=== PATIENT | female | born 1960 | race Caucasian/White ===

== ENCOUNTER 2018-03-06 19:25 | Outpatient (REF) | payer OTHER, SELFPAY ==
[2018-03-06 19:36] LABS: HCT 43.4 % (36.0-46.0); HGB 14.7 g/dL (12.0-15.5); Mean Corp. HGB Concentration 33.9 g/dL (32.0-36.0); Mean Corpuscular Hemoglobin 31.1 pg (27.0-33.0); Mean Corpuscular Volume 91.9 fL (80-95); RBC 4.72 m/cumm (4.00-5.20); RBC Distribution Width 13.1 % (11.7-14.6); White Blood Cell Count 8.15 k/cumm (4.4-10.8)
[2018-03-06 19:37] LABS: Mean Platelet Volume 11.2 fL (8.0-11.0); Platelet Count 337 x1000/uL (130-400)
[2018-03-06 19:53] LABS: ALT 37 U/L (12-78); AST 28 U/L (15-37); Albumin 3.6 g/dL (3.4-5.0); Alkaline Phosphatase 71 U/L (46-116); Anion Gap 10.6 mmol/L (3-11); BUN 25 mg/dL (7-18); Bilirubin, Total 0.3 mg/dL (0.2-1.0); CO2 23.4 mmol/L (21.0-32.0); CREATININE 0.75 mg/dL (0.55-1.02); Calcium 8.8 mg/dL (8.5-10.1); Chloride 108 mmol/L (98-107); Glucose 99 mg/dL (70-100); Potassium 3.8 mmol/L (3.5-5.1); Sodium 142 mmol/L (136-145); TSH 3.75 uIU/mL (0.358-3.74); Total Protein 6.6 g/dL (6.4-8.2)
== END 2018-03-06 19:26 ==
LOC: NCHCN 19:25
PROVIDERS: PCP Internal Medicine; Visit Provider Physician Assistant Medical
DX: R19.7 Diarrhea, unspecified (principal)
CPT/HCPCS: 80053; 85027; 84443

== ENCOUNTER 2018-12-11 15:32 | Outpatient (REF) | payer OTHER, SELFPAY ==
--- NOTE | 2018-12-11 14:45 | PAPFT_PTH ---
PATIENT: Laney Merrill LOC: [facility] U#:[id number] AGE/SX: 58/F ROOM: RE12/11/[address]: Marc Duggan : 1960 BED: DIS: 12/11/2018 SPEC #: [id number] RECD: 12/12/18 13:01 STATUS: YOLANDA MACKEY #: [id number] BLANCA: 12/11/18 14:[address]: Marc Duggan DEPT: [facility] Cytology RECD BY: Lashanda Hensley Tissues: 1 - CX/ENDOCX FOR PAP SMEARS Procedures: PAP THIN PREP/[facility] Screening HPV DNA PROBE Comments: [id number]
== END 2018-12-11 15:52 ==
LOC: NCHCN 15:32
PROVIDERS: PCP Internal Medicine; Referring Provider Internal Medicine; Visit Provider Internal Medicine
DX: Z12.4 Encounter for screening for malignant neoplasm of cervix (principal); Z11.51 Encounter for screening for human papillomavirus (HPV); Z01.419 Encounter for gynecological examination (general) (routine) without abnormal findings
CPT/HCPCS: 88142; 87624

== ENCOUNTER 2019-12-19 18:51 | Outpatient (REF) | payer OTHER, SELFPAY ==
[2019-12-19 21:00] LABS: Anion Gap 10.2 mmol/L (3-11); BUN 15 mg/dL (7-18); CO2 26.8 mmol/L (21.0-32.0); CREATININE 0.98 mg/dL (0.55-1.02); Calcium 9.8 mg/dL (8.5-10.1); Calculated LDL 142 mg/dL (<100); Chloride 106 mmol/L (98-107); Cholesterol 246 mg/dL (<200); Glucose 93 mg/dL (74-106); HDL Cholesterol 91 mg/dL (40-60); Potassium 4.1 mmol/L (3.5-5.1); Sodium 143 mmol/L (136-145); TSH 3.66 uIU/mL (0.36-3.74); Triglyceride 66 mg/dL (<150)
== END 2019-12-19 19:11 ==
LOC: NCHCN 18:51
PROVIDERS: PCP Internal Medicine; Visit Provider Internal Medicine
DX: Z00.00 Encounter for general adult medical examination without abnormal findings (principal); Z13.29 Encounter for screening for other suspected endocrine disorder; Z13.220 Encounter for screening for lipoid disorders; Z13.228 Encounter for screening for other metabolic disorders
CPT/HCPCS: 80048; 80061; 84443

== ENCOUNTER 2020-12-24 15:01 | Outpatient (REF) | payer OTHER, SELFPAY ==
[2020-12-24 22:34] LABS: Calculated LDL 138 mg/dL (<100); Cholesterol 245 mg/dL (<200); Glucose 87 mg/dL (74-106); HDL Cholesterol 85 mg/dL (40-60); Triglyceride 114 mg/dL (<150)
== END 2020-12-24 15:02 | disposition home or self-care (01) ==
LOC: NCHCN 15:01
PROVIDERS: PCP Internal Medicine; Visit Provider Internal Medicine
DX: Z00.00 Encounter for general adult medical examination without abnormal findings (principal); Z13.1 Encounter for screening for diabetes mellitus; Z13.29 Encounter for screening for other suspected endocrine disorder; Z13.220 Encounter for screening for lipoid disorders
CPT/HCPCS: 80061; 82947; 84443

== ENCOUNTER 2021-12-31 12:07 | Outpatient (REF) | payer BC, SELFPAY ==
--- NOTE | 2021-12-31 11:00 | PAPFT_PTH ---
PATIENT: Laney Merrill LOC: [facility]#:[id number] AGE/SX: 61/F ROOM: RE12/31/[address]: Marc Duggan : 1960 BED: DIS: 12/31/2021 SPEC #: [id number] RECD: 12/31/21 18:35 STATUS: YOLANDA REJonathan #: [id number] BLANCA: 12/31/21 11:[address]: Marc Duggan DEPT: [facility] Cytology RECD BY: Lashanda Hensley Tissues: 1 - CX/ENDOCX FOR PAP SMEARS Procedures: PAP THIN PREP/[facility] Screening HPV DNA PROBE Comments: [id number]
[2021-12-31 19:24] LABS: Glucose 91 mg/dL (74-106)
== END 2021-12-31 12:08 | disposition home or self-care (01) ==
LOC: NCHCN 12:07
PROVIDERS: PCP Internal Medicine; Visit Provider Internal Medicine
DX: Z00.00 Encounter for general adult medical examination without abnormal findings (principal); N95.2 Postmenopausal atrophic vaginitis; Z13.1 Encounter for screening for diabetes mellitus; Z13.29 Encounter for screening for other suspected endocrine disorder; Z12.4 Encounter for screening for malignant neoplasm of cervix; Z01.419 Encounter for gynecological examination (general) (routine) without abnormal findings; Z11.51 Encounter for screening for human papillomavirus (HPV)
CPT/HCPCS: 82947; 88142; 84443; 87624

== ENCOUNTER 2023-05-11 20:59 | Outpatient (REF) | payer BC, SELFPAY ==
[2023-05-11 20:18] LABS: Abs Immature Grans 0.01 10^3/uL (0.0-0.06); Absolute Basophil Count 0.03 10^3/uL (0.0-0.2); Absolute Eosinophil Count 0.05 10^3/uL (0.0-0.7); Absolute Lymphocyte Count 1.57 10^3/uL (1.2-3.4); Absolute Monocyte Count 0.22 10^3/uL (0.1-0.8); Absolute Neutrophil Count 3.29 10^3/uL (1.2-6.7); Basophils % 0.6; HCT 44.4 % (36.0-46.0); HGB 14.3 g/dL (11.2-15.7); Immature Grans % 0.2; Lymphocytes % 30.4; MCH 30.4 pg (27.0-33.0); MCHC 32.2 % (32.0-36.0); MCV 94 fL (80-95); MPV 10.2 fL (8.0-11.0); Monocytes % 4.3; Neutrophils % 63.5; Platelet Count 343 10^3/uL (130-400); RBC 4.71 10^6/uL (3.93-5.22); RDW 12.8 % (11.7-14.6); RDW-SD 44.3 fL; WBC 5.17 10^3/uL (4.4-10.8)
[2023-05-11 20:43] LABS: Iron 115 ug/dL (50-170); Total Iron Binding Capacity 320 ug/dL (250-450); Transferrin Sat 36 % (15-50)
[2023-05-11 20:50] LABS: ALT 77 U/L (14-59); AST 32 U/L (15-37); Albumin 4.2 g/dL (3.4-5.0); Alkaline Phosphatase 141 U/L (46-116); Anion Gap 11.6 mmol/L (3-11); BUN 19 mg/dL (7-18); Bilirubin, Total 0.5 mg/dL (0.2-1.0); CO2 26.4 mmol/L (21.0-32.0); CREATININE 0.8 mg/dL (0.55-1.02); Chloride 103 mmol/L (98-107); Estimated GFR 81.72 (mL/min/1.73m2); Ferritin 236 ng/mL (8-252); Glucose 91 mg/dL (74-106); Potassium 3.9 mmol/L (3.5-5.1); Sodium 141 mmol/L (136-145); TSH (W/Ref FT4) 1.89 uIU/mL (0.36-3.74); Total Protein 7.5 g/dL (6.4-8.2)
[2023-05-13 12:41] LABS: ANA Interpretation Negative (Negative)
[2023-05-14 12:42] LABS: Smooth Muscle Ab Screen Negative (Negative)
[2023-05-14 18:59] LABS: Mitochondrial Ab, M2 <0.1 U
== END 2023-05-11 21:00 | disposition home or self-care (01) ==
LOC: NCHCN 20:59
PROVIDERS: PCP Internal Medicine; Visit Provider Physician Assistant
DX: R74.8 Abnormal levels of other serum enzymes (principal)
CPT/HCPCS: 80053; 83516; 82728; 83540; 83550; 84443; 85025; 86038; 86255; 87086

== ENCOUNTER → 2023-07-01 00:43 | Outpatient (CLI) | payer BC, SELFPAY ==
--- NOTE | 2023-07-01 15:00 | DI.MAMMO_ITS ---
Exam(s) MAMMO SCREENING EXAM: MAMMO SCREENING CLINICAL HISTORY: SCREENING, FORMERLY [facility], 1928–1983, Z00.00 TECHNIQUE: Bilateral full field digital CC and MLO mammographic images were obtained with 3D tomosyn thesis and utilizing computer aided detection (CAD). COMPARISON: [address] [facility]. FINDINGS: Masses/Architectural Distortion: None seen. Microcalcifications: No suspicious pleomorphic-type are seen. Skin Thickening/Nipple Retraction: None. IMPRESSION: 1. No significant interval change with no specific features of malignancy noted. 2. Unless there is more urgent need, screening mammography is recommended, as per [employer] guidelines. BI-RADS Category 1 - Negative Breast Density - Category C - Heterogeneously dense Breast density category C or D implies that the patient has dense breast tissue. Dense breast tissue is very common and is not abnormal but dense breast tissue can make it harder to find cancer on a ma mmogram. Also, dense breast tissue may increase their breast cancer risk. This information about the result of the mammogram report was provided to the patient to raise their awareness. Use this report when you speak with the patient about their risks for breast cancer, which includes their family hist ory. At that time, you may recommend for more screening tests (Ultrasound or MRI) as they might be us eful based on their risk. A negative radiographic report should not delay biopsy if a dominant or clinically suspicious mass is present. Up to ten percent of cancers are not identified on mammography. A negative report may reinforce clinical impression. Adenosis and dense breasts may obscure an underlying neoplasm. False positive reports average 6 to 10%. Patient will receive a letter notifying them of these results.
== END ==
PROVIDERS: PCP Internal Medicine; Visit Provider Internal Medicine
DX: Z12.31 Encounter for screening mammogram for malignant neoplasm of breast (principal)
CPT/HCPCS: 77063; 77067

== ENCOUNTER 2023-07-01 13:29 | Outpatient (CLI) | payer BC, SELFPAY ==
[2023-07-01 16:32] LABS: ALT 41 U/L (14-59); AST 35 U/L (15-37); Alkaline Phosphatase 77 U/L (46-116); Bilirubin, Total 0.4 mg/dL (0.2-1.0); Total Protein 6.7 g/dL (6.4-8.2)
[2023-07-01 16:55] LABS: Bilirubin, Direct 0.1 mg/dL (0.0-0.2)
[2023-07-01 22:33] LABS: Hepatitis B Surface Ab Positive (See Note)
[2023-07-01 22:46] LABS: Hepatitis B Surface Ag Negative (Negative)
[2023-07-01 23:13] LABS: Hepatitis C Ab w Rflx HCV PCR Negative (Negative)
== END 2023-07-01 13:30 | disposition home or self-care (01) ==
LOC: LBO 13:33
PROVIDERS: PCP Internal Medicine; Visit Provider Internal Medicine
DX: R74.01 Elevation of levels of liver transaminase levels (principal)
CPT/HCPCS: 36415; 80076; 86706; 86803; 87340

== ENCOUNTER 2024-03-14 14:55 | Outpatient (REF) | payer BC, SELFPAY ==
[2024-03-14 20:04] LABS: ALT 37 U/L (14-59); TSH 2.14 uIU/Ml (0.36-3.74)
== END 2024-03-14 14:56 | disposition home or self-care (01) ==
LOC: NCHCN 14:55
PROVIDERS: PCP Internal Medicine; Visit Provider Internal Medicine
DX: R74.01 Elevation of levels of liver transaminase levels (principal); E03.9 Hypothyroidism, unspecified
CPT/HCPCS: 84443; 84460

== ENCOUNTER 2024-09-07 15:26 | Outpatient (REF) | payer BC, SELFPAY ==
[2024-09-07 19:13] LABS: TSH (W/Ref FT4) 2.14 uIU/mL (0.36-3.74)
== END 2024-09-07 15:27 | disposition home or self-care (01) ==
LOC: NCHCN 15:26
PROVIDERS: PCP Internal Medicine; Visit Provider Physician Assistant
DX: E06.3 Autoimmune thyroiditis (principal)
CPT/HCPCS: 84443